=== PATIENT | female | born 1955 | race Hispanic/Latino ===

== ENCOUNTER 2021-12-14 14:11 | Outpatient (CLI) | payer MEDICARE | END 2021-12-14 14:12 | disposition home or self-care (01) | LOC: BICMAMMO 14:11 | PROVIDERS: ATTEND Internal Medicine Rheumatology | DX: M81.0 Age-related osteoporosis without current pathological fracture (principal); M05.79 Rheumatoid arthritis with rheumatoid factor of multiple sites without organ or systems involvement | CPT/HCPCS: 71046; 77080 ==

== ENCOUNTER 2022-03-10 08:53 | Outpatient (CLI) | payer MEDICARE | END 2022-03-10 08:54 | disposition home or self-care (01) | LOC: BICMRI 08:53 | PROVIDERS: ATTEND Anesthesiology | DX: M47.26 Other spondylosis with radiculopathy, lumbar region (principal); M47.22 Other spondylosis with radiculopathy, cervical region; M47.817 Spondylosis without myelopathy or radiculopathy, lumbosacral region; M48.07 Spinal stenosis, lumbosacral region | CPT/HCPCS: 72141; 72148 ==

== ENCOUNTER 2022-05-11 10:35 | Emergency (ER) | payer MEDICARE ==
[2022-05-11] MEDS ORDERED: Ketorolac Tromethamine 30 MG/ML VIAL ONE (12:26)
== END 2022-05-11 13:39 | disposition home or self-care (01) ==
LOC: ERS 10:35
DX: M25.532 Pain in left wrist (principal); M25.571 Pain in right ankle and joints of right foot; I10 Essential (primary) hypertension; M06.9 Rheumatoid arthritis, unspecified; M79.7 Fibromyalgia; Z79.82 Long term (current) use of aspirin; Z79.899 Other long term (current) drug therapy
CPT/HCPCS: 93005; J1885

== ENCOUNTER 2022-06-10 21:47 | Observation (INO) | payer MEDICARE ==
[2022-06-10 22:27] LABS: #Basophils 0.1 thou/uL (0.0-0.2); #Lymphocytes 3.2 thou/uL (1.20-3.40); #Monocytes 0.6 thou/uL (0.11-0.59); #Neutrophils 4.3 thou/uL (1.40-6.50); %Basophils 0.8 % (0.0-1.0); %Eosinophils 0.1 % (0.0-10.0); %Monocytes 7.4 % (0.0-10.0); %Neutrophils 52.6 % (42.0-75.0); Hemoglobin 12.5 g/dL (12.0-16.0); Mean Corpuscular HGB CONC 33.4 g/dL (32.0-36.0); Mean Corpuscular Hemoglobin 31.1 pg (27.0-31.0); Mean Corpuscular Volume 93.1 fL (78.0-98.0); Mean Platelet Volume 7.1 fL (7.4-10.4); Platelet Count 268 thou/uL (130-400); RBC Distribution Width 11.9 % (11.5-14.5); Red Blood Cell (RBC) Count 4.02 mill/uL (4.20-5.40); White Blood Cell (WBC) Count 8.1 thou/uL (4.8-10.8)
[2022-06-10] MEDS ORDERED: Aspirin Chewable 81 MG TAB ONE ×2 (22:44→22:57)
[2022-06-10 22:50] LABS: ALT (SGPT) 8 U/L (8-55); AST (SGOT) 14 U/L (5-34); Albumin 4.1 g/dL (3.4-4.8); Alkaline Phosphatase 87 U/L (40-110); Anion Gap 14 mmol/L (10-20); BUN (Urea Nitrogen) 10 mg/dL (9.8-20.1); Bilirubin, Total Less than 0.2 mg/dL (0.2-1.2); Calc. Creatinine Clearance 0 mL/min (70-130); Calcium 8.8 mg/dL (7.8-10.44); Carbon Dioxide 25 mmol/L (23-31); Chloride 99 mmol/L (98-107); Estimated GFR 95; Globulin 3.1 g/dL (2.4-3.5); Glucose 91 mg/dL (80-115); Magnesium 2.1 mg/dL (1.6-2.6); Potassium 3.7 mmol/L (3.5-5.1); Protein, Total 7.2 g/dL (5.8-8.1); Sodium 134 mmol/L (136-145)
[2022-06-10 23:12] LABS: CKMB 0.5 ng/mL (0-6.6)
[2022-06-10] MEDS ORDERED: Nitroglycerin 0.4 MG TAB 1 EACH ONE (23:25)
[2022-06-11 01:04] VITALS: BMI 30.9
[2022-06-11] MEDS ORDERED: Acetaminophen 325 MG TAB PO PRN (02:16)
[2022-06-11] MEDS ORDERED: Acetaminophen 650 MG Suppository PR PRN (02:16)
[2022-06-11] MEDS ORDERED: Ondansetron PF 4 MG/2 ML Vial IVP PRN (02:16)
[2022-06-11 02:26] LABS: Troponin I Less than 0.010 ng/mL (< 0.028)
[2022-06-11] MEDS: Morphine 4 MG/ML VIAL SLOW IVP PRN ×2 (02:31→16:35)
[2022-06-11] MEDS: Ondansetron ODT 4 MG TAB PO PRN ×2 (02:32→18:42)
[2022-06-11] MEDS ORDERED: hydrALAZINE 20 MG/ML VIAL SLOW IVP PRN (02:56)
[2022-06-11 05:21] LABS: #Lymphocytes 2.6 thou/uL (1.20-3.40); #Monocytes 0.5 thou/uL (0.11-0.59); %Basophils 0.2 % (0.0-1.0); %Eosinophils 0.1 % (0.0-10.0); %Monocytes 6.4 % (0.0-10.0); %Neutrophils 56.2 % (42.0-75.0); Hemoglobin 12.6 g/dL (12.0-16.0); Mean Corpuscular HGB CONC 34.2 g/dL (32.0-36.0); Mean Corpuscular Hemoglobin 32.1 pg (27.0-31.0); Mean Corpuscular Volume 93.6 fL (78.0-98.0); Mean Platelet Volume 7.2 fL (7.4-10.4); Platelet Count 257 thou/uL (130-400); RBC Distribution Width 12.1 % (11.5-14.5); Red Blood Cell (RBC) Count 3.93 mill/uL (4.20-5.40); White Blood Cell (WBC) Count 7.1 thou/uL (4.8-10.8)
[2022-06-11 05:40] LABS: Anion Gap 12 mmol/L (10-20); BUN (Urea Nitrogen) 7 mg/dL (9.8-20.1); Calc. Creatinine Clearance 101 mL/min (70-130); Calcium 8.8 mg/dL (7.8-10.44); Carbon Dioxide 27 mmol/L (23-31); Chloride 101 mmol/L (98-107); Estimated GFR 96; Glucose 100 mg/dL (80-115); Sodium 136 mmol/L (136-145)
[2022-06-11 05:41] LABS: Troponin I Less than 0.010 ng/mL (< 0.028)
[2022-06-11] MEDS ORDERED: Nitroglycerin 0.4 MG TAB (25 Tab Bottle) SL PRN (06:52)
[2022-06-11] MEDS ORDERED: ADENOSINE 60 MG/20 ML VIAL ONE (08:32)
[2022-06-11] MEDS: Aspirin Chewable 81 MG TAB PO SCH (09:18)
[2022-06-11] MEDS ORDERED: Iopamidol-370 76% 500 ML 1 ML ONE (09:57)
[2022-06-11] MEDS ORDERED: Morphine 2 MG/ML VIAL SLOW IVP PRN (17:03)
[2022-06-11] MEDS ORDERED: Folic Acid 1 MG TAB PO SCH (17:15)
[2022-06-11] MEDS ORDERED: Sodium Chloride 0.9% 1,000 ML IV SCH (17:15)
[2022-06-11] MEDS ORDERED: HYDROcodone/Acetaminophen 7.5/325 mg Tablet PO PRN (18:03)
[2022-06-11] MEDS: carBAMazepine 200 MG TAB PO SCH ×2 (18:51→20:20)
[2022-06-11] MEDS: Fluticasone Propionate Nasal Spray 16 gm Bottle NASAL SCH (20:21)
[2022-06-11] MEDS: Polyvinyl Alcohol 1.4%/Povidone 0.6% Opth Drops EA EYE SCH (20:24)
[2022-06-11] MEDS: Timolol 0.25% Ophth Soln 5 ml Bottle EA EYE SCH (20:25)
[2022-06-11] MEDS ORDERED: Latanoprost 0.005% Ophth Soln 2.5 ml Bottle EA EYE SCH (21:00)
[2022-06-12] MEDS: carBAMazepine 200 MG TAB PO SCH (08:06)
[2022-06-12] MEDS: Aspirin Chewable 81 MG TAB PO SCH (08:06)
[2022-06-12] MEDS: Fluticasone Propionate Nasal Spray 16 gm Bottle NASAL SCH (08:06)
[2022-06-12] MEDS: Timolol 0.25% Ophth Soln 5 ml Bottle EA EYE SCH (08:07)
[2022-06-12] MEDS: Polyvinyl Alcohol 1.4%/Povidone 0.6% Opth Drops EA EYE SCH (08:10)
[2022-06-12] MEDS ORDERED: Aspirin Chewable 81 MG TAB PO SCH (09:00)
[2022-06-12] MEDS ORDERED: Leflunomide 10 mg Tablet PO SCH (09:00)
[2022-06-12] MEDS ORDERED: [UNRECOGNIZED DRUG - MIXTURE] PO SCH (09:00)
[2022-06-12] MEDS ORDERED: Citalopram 20 MG TAB PO SCH (09:00)
[2022-06-12] MEDS ORDERED: Folic Acid 1 MG TAB PO SCH (09:00)
[2022-06-12 09:48] VITALS: BP 129/62; TEMP 97.6
[2022-06-18] MEDS ORDERED: Non-Formulary Item 1 EACH (Cholecalciferol (Vitamin D3) [Vitamin D] 1000 UNIT Capsule) PO SCH (09:00)
== END 2022-06-12 11:35 | disposition home or self-care (01) ==
LOC: ERS 21:47 → 2SW 06-11 00:01
PROVIDERS: ADMIT Internal Medicine; ATTEND Internal Medicine
DX: R07.81 Pleurodynia (principal); E87.1 Hypo-osmolality and hyponatremia; I95.9 Hypotension, unspecified; H40.9 Unspecified glaucoma; M79.7 Fibromyalgia; M06.9 Rheumatoid arthritis, unspecified; G89.4 Chronic pain syndrome; K21.9 Gastro-esophageal reflux disease without esophagitis; I10 Essential (primary) hypertension; G50.0 Trigeminal neuralgia; Z79.82 Long term (current) use of aspirin; Z79.899 Other long term (current) drug therapy; Z20.822 Contact with and (suspected) exposure to COVID-19
CPT/HCPCS: 71045; 71275; 78452; 80048; 80053; 82553; 83735; 83880; 84484 ×3; 85025 ×2; 93005; 93017; 96374; 96375; 96376; 99285; A9500; G0378 ×3; U0003; U0005; 36415; J0153; J0360; J2270; J7050; Q0162; Q9967

== ENCOUNTER 2022-06-29 10:40 | Emergency (ER) | payer MEDICARE ==
[2022-06-29 11:23] LABS: #Basophils 0.1 thou/uL (0.0-0.2); #Neutrophils 9.6 thou/uL (1.40-6.50); %Basophils 0.4 % (0.0-1.0); %Lymphocytes 16.2 % (21.0-51.0); %Monocytes 7.7 % (0.0-10.0); %Neutrophils 75.6 % (42.0-75.0); Hemoglobin 13.3 g/dL (12.0-16.0); Mean Corpuscular HGB CONC 33.3 g/dL (32.0-36.0); Mean Corpuscular Hemoglobin 31.7 pg (27.0-31.0); Mean Corpuscular Volume 95.1 fL (78.0-98.0); Mean Platelet Volume 7.7 fL (7.4-10.4); Platelet Count 211 thou/uL (130-400); White Blood Cell (WBC) Count 12.6 thou/uL (4.8-10.8)
[2022-06-29 11:46] LABS: ALT (SGPT) 10 U/L (8-55); AST (SGOT) 12 U/L (5-34); Alkaline Phosphatase 81 U/L (40-110); Anion Gap 11 mmol/L (10-20); BUN (Urea Nitrogen) 8 mg/dL (9.8-20.1); Bilirubin, Total 0.7 mg/dL (0.2-1.2); Calc. Creatinine Clearance 0 mL/min (70-130); Carbon Dioxide 28 mmol/L (23-31); Chloride 99 mmol/L (98-107); Estimated GFR 95; Globulin 3.2 g/dL (2.4-3.5); Glucose 119 mg/dL (80-115); Lipase 10 U/L (8-78); Protein, Total 7.2 g/dL (5.8-8.1); Sodium 134 mmol/L (136-145)
[2022-06-29] MEDS ORDERED: Dicyclomine 20 MG/2 ML VIAL ONE (12:53)
[2022-06-29] MEDS ORDERED: Ondansetron PF 4 MG/2 ML Vial ONE (12:53)
[2022-06-29] MEDS ORDERED: Morphine 4 MG/ML VIAL ONE (12:53)
[2022-06-29] MEDS ORDERED: Iopamidol-370 76% 500 ML 1 ML ONE (13:39)
[2022-06-29 13:56] LABS: Bilirubin Negative (Negative); Blood, Urine Negative (Negative); Clarity Clear (Clear); Glucose, Urine (Dipstick) Normal (Negative); Ketone, Urine Negative (Negative); Leukocyte Negative Leu/uL (Negative); Nitrite Negative (Negative); Protein, Urine (Dipstick) Negative (Neg-Trace); Specific Gravity, Urine 1.005 (1.002-1.036); Urobilinogen Normal mg/dL (Less than 2)
== END 2022-06-29 14:36 | disposition home or self-care (01) ==
LOC: ERS 10:40
DX: K57.92 Diverticulitis of intestine, part unspecified, without perforation or abscess without bleeding (principal); I10 Essential (primary) hypertension; M06.9 Rheumatoid arthritis, unspecified; M79.7 Fibromyalgia; Z79.82 Long term (current) use of aspirin; Z79.4 Long term (current) use of insulin; Z79.899 Other long term (current) drug therapy
CPT/HCPCS: 36415; 71045; 71275; 75635; 80053; 81003; 83605; 83690; 84484; 85025; 93005; 94760; 96372; 96374; 96375; J2270; J2405; Q9967

== ENCOUNTER 2022-08-22 17:30 | Outpatient (CLI) | payer MEDICARE | END 2022-08-22 17:31 | disposition home or self-care (01) | LOC: SLEEPLAB 17:30 | PROVIDERS: ATTEND Internal Medicine Pulmonary Disease | DX: G47.33 Obstructive sleep apnea (adult) (pediatric) (principal); R06.83 Snoring; G47.00 Insomnia, unspecified; E66.9 Obesity, unspecified; Z68.31 Body mass index [BMI] 31.0-31.9, adult | CPT/HCPCS: 95800 ==

== ENCOUNTER 2022-11-30 07:35 | Outpatient (CLI) | payer MEDICARE ==
[2022-11-30] MEDS ORDERED: Iopamidol 370 76% 100 ML VIAL ONE (14:59)
== END 2022-11-30 07:36 | disposition home or self-care (01) ==
LOC: CT 07:35
PROVIDERS: ATTEND Internal Medicine Gastroenterology
DX: K57.92 Diverticulitis of intestine, part unspecified, without perforation or abscess without bleeding (principal)
CPT/HCPCS: 74177; Q9967

== ENCOUNTER 2022-12-02 11:31 | Outpatient (CLI) | payer MEDICARE | END 2022-12-02 11:32 | disposition home or self-care (01) | LOC: RAD 11:31 | PROVIDERS: ATTEND Physician Assistant Medical | DX: R07.9 Chest pain, unspecified (principal) | CPT/HCPCS: 71046 ==

== ENCOUNTER 2022-12-05 10:45 | Outpatient (CLI) | payer MEDICARE | END 2022-12-05 10:46 | disposition home or self-care (01) | LOC: BICMAMMO 10:45 | PROVIDERS: ATTEND Student in an Organized Health Care Education/Training Program | DX: Z12.31 Encounter for screening mammogram for malignant neoplasm of breast (principal) | CPT/HCPCS: 77063; 77067 ==

== ENCOUNTER 2022-12-27 23:28 | Emergency (ER) | payer MEDICARE ==
[2022-12-27] MEDS ORDERED: Ondansetron ODT 4 MG TAB ONE (23:38)
[2022-12-28] MEDS ORDERED: diphenhydrAMINE 50 MG/ML VIAL ONE (00:14)
[2022-12-28] MEDS ORDERED: Metoclopramide HCl 10 MG/2 ML VIAL ONE (00:14)
[2022-12-28 00:41] LABS: #Basophils 0.1 thou/uL (0.0-0.2); #Lymphocytes 3.2 thou/uL (1.20-3.40); #Monocytes 0.7 thou/uL (0.11-0.59); #Neutrophils 4.7 thou/uL (1.40-6.50); %Basophils 0.9 % (0.0-1.0); %Eosinophils 0.1 % (0.0-10.0); %Lymphocytes 36.8 % (21.0-51.0); %Monocytes 7.9 % (0.0-10.0); %Neutrophils 54.3 % (42.0-75.0); Hemoglobin 13.5 g/dL (12.0-16.0); Mean Corpuscular HGB CONC 35.7 g/dL (32.0-36.0); Mean Corpuscular Hemoglobin 32.9 pg (27.0-31.0); Mean Corpuscular Volume 92.3 fl (78.0-98.0); Mean Platelet Volume 7.1 fL (7.4-10.4); Platelet Count 233 10x3/uL (130-400); RBC Distribution Width 11.7 % (11.5-14.5); Red Blood Cell (RBC) Count 4.09 mill/uL (4.20-5.40); White Blood Cell (WBC) Count 8.7 10x3/uL (4.8-10.8)
[2022-12-28 01:02] LABS: ALT (SGPT) 10 U/L (8-55); AST (SGOT) 14 U/L (5-34); Albumin 4.1 g/dL (3.4-4.8); Alkaline Phosphatase 72 U/L (40-110); Anion Gap 14 mmol/L (10-20); BUN (Urea Nitrogen) 7 mg/dL (9.8-20.1); Bilirubin, Total 0.4 mg/dL (0.2-1.2); Calc. Creatinine Clearance 0 mL/min (70-130); Calcium 9.3 mg/dL (7.8-10.44); Carbon Dioxide 24 mmol/L (23-31); Chloride 98 mmol/L (98-107); Estimated GFR 90; Globulin 3.2 g/dL (2.4-3.5); Glucose 107 mg/dL (80-115); Magnesium 2.1 mg/dL (1.6-2.6); Potassium 3.9 mmol/L (3.5-5.1); Protein, Total 7.3 g/dL (5.8-8.1); Sodium 132 mmol/L (136-145)
[2022-12-28] MEDS ORDERED: Morphine 4 MG/ML VIAL ONE (01:05)
[2022-12-28] MEDS ORDERED: Iopamidol-370 76% 500 ML 1 ML ONE (17:09)
== END 2022-12-28 03:38 | disposition home or self-care (01) ==
LOC: ERS 23:28
DX: E51.9 Thiamine deficiency, unspecified (principal); E04.1 Nontoxic single thyroid nodule; I10 Essential (primary) hypertension
CPT/HCPCS: 70496; 70498; 80053; 83735; 85025; 93005; 96365; 96375; J1200; J2270; J2765; Q0162; Q9967

== ENCOUNTER 2023-02-06 10:14 | Outpatient (CLI) | payer MEDICARE | END 2023-02-06 10:15 | disposition home or self-care (01) | LOC: ULT 10:14 | PROVIDERS: ATTEND Nurse Practitioner Family | DX: E04.1 Nontoxic single thyroid nodule (principal); E04.2 Nontoxic multinodular goiter | CPT/HCPCS: 76536 ==

== ENCOUNTER 2023-05-18 10:22 | Outpatient (CLI) | payer MEDICARE | END 2023-05-18 10:23 | disposition home or self-care (01) | LOC: RAD 10:22 | PROVIDERS: ATTEND Student in an Organized Health Care Education/Training Program | DX: M25.511 Pain in right shoulder (principal) ==

== ENCOUNTER 2023-06-04 21:45 | Emergency (ER) | payer MEDICARE ==
[2023-06-04] MEDS ORDERED: Gabapentin 100 MG CAP PO SCH (23:30)
[2023-06-04 23:42] LABS: #Monocytes 0.9 thou/uL (0.11-0.59); #Neutrophils 5.2 thou/uL (1.40-6.50); %Basophils 0.4 % (0.0-1.0); %Lymphocytes 37.1 % (21.0-51.0); %Monocytes 8.8 % (0.0-10.0); %Neutrophils 53.3 % (42.0-75.0); Hematocrit 36.6 % (36.0-47.0); Hemoglobin 12.4 g/dL (12.0-16.0); Mean Corpuscular HGB CONC 33.9 g/dL (32.0-36.0); Mean Corpuscular Hemoglobin 30.9 pg (27.0-31.0); Mean Corpuscular Volume 91.3 fl (78.0-98.0); Mean Platelet Volume 9.3 fL (7.4-10.4); Platelet Count 259 10x3/uL (130-400); RBC Distribution Width 13.1 % (11.5-14.5); Red Blood Cell (RBC) Count 4.01 mill/uL (4.20-5.40); White Blood Cell (WBC) Count 9.8 10x3/uL (4.8-10.8)
[2023-06-05 00:06] LABS: ALT (SGPT) 12 U/L (8-55); AST (SGOT) 17 U/L (5-34); Albumin 4.2 g/dL (3.4-4.8); Alkaline Phosphatase 99 U/L (40-110); Anion Gap 13 mmol/L (10-20); BUN (Urea Nitrogen) 12 mg/dL (9.8-20.1); Bilirubin, Total 0.2 mg/dL (0.2-1.2); Calc. Creatinine Clearance 0 mL/min (70-130); Carbon Dioxide 25 mmol/L (23-31); Chloride 101 mmol/L (98-107); Estimated GFR 83; Globulin 3.2 g/dL (2.4-3.5); Glucose 92 mg/dL (80-115); Potassium 3.9 mmol/L (3.5-5.1); Protein, Total 7.4 g/dL (5.8-8.1); Sodium 135 mmol/L (136-145)
[2023-06-05 00:10] LABS: Troponin I Less than 0.010 ng/mL (< 0.028)
== END 2023-06-05 00:53 | disposition home or self-care (01) ==
LOC: ERS 21:45
DX: R20.2 Paresthesia of skin (principal); I10 Essential (primary) hypertension; Z79.82 Long term (current) use of aspirin; Z79.899 Other long term (current) drug therapy
CPT/HCPCS: 36415; 80053; 84484; 85025; 93005

== ENCOUNTER 2023-06-06 11:48 | Outpatient (CLI) | payer MEDICARE | END 2023-06-06 11:49 | disposition home or self-care (01) | LOC: RAD 11:48 | PROVIDERS: ATTEND Internal Medicine Rheumatology | DX: M54.2 Cervicalgia (principal); M47.812 Spondylosis without myelopathy or radiculopathy, cervical region | CPT/HCPCS: 72052 ==

== ENCOUNTER 2023-06-19 23:13 | Observation (INO) | payer MEDICARE ==
[2023-06-20] MEDS ORDERED: Ketorolac Tromethamine 30 MG/ML VIAL ONE ×2 (01:39→11:30)
[2023-06-20 01:55] LABS: #Monocytes 0.6 thou/uL (0.11-0.59); #Neutrophils 4.8 thou/uL (1.40-6.50); %Basophils 0.2 % (0.0-1.0); %Lymphocytes 33.3 % (21.0-51.0); %Monocytes 7.7 % (0.0-10.0); %Neutrophils 58.4 % (42.0-75.0); Hematocrit 37.7 % (36.0-47.0); Hemoglobin 13.2 g/dL (12.0-16.0); Mean Corpuscular Hemoglobin 30.9 pg (27.0-31.0); Mean Platelet Volume 9.2 fL (7.4-10.4); Platelet Count 231 10x3/uL (130-400); RBC Distribution Width 12.9 % (11.5-14.5); Red Blood Cell (RBC) Count 4.27 mill/uL (4.20-5.40); White Blood Cell (WBC) Count 8.2 10x3/uL (4.8-10.8)
[2023-06-20 02:03] LABS: Mean Corpuscular Volume 88.3 fl (78.0-98.0)
[2023-06-20 02:19] LABS: ALT (SGPT) 10 U/L (8-55); AST (SGOT) 15 U/L (5-34); Albumin 4.1 g/dL (3.4-4.8); Alkaline Phosphatase 100 U/L (40-110); Anion Gap 14 mmol/L (10-20); BUN (Urea Nitrogen) 9 mg/dL (9.8-20.1); Bilirubin, Total 0.3 mg/dL (0.2-1.2); Calc. Creatinine Clearance 0 mL/min (70-130); Calcium 9.4 mg/dL (7.8-10.44); Carbon Dioxide 23 mmol/L (23-31); Chloride 95 mmol/L (98-107); Estimated GFR 95; Globulin 3.5 g/dL (2.4-3.5); Glucose 108 mg/dL (80-115); Lipase 23 U/L (8-78); Protein, Total 7.6 g/dL (5.8-8.1); Sodium 128 mmol/L (136-145)
[2023-06-20 02:27] LABS: Troponin I Less than 0.010 ng/mL (< 0.028)
[2023-06-20] MEDS ORDERED: Ondansetron PF 4 MG/2 ML Vial IVP PRN (05:30)
[2023-06-20] MEDS ORDERED: Acetaminophen 650 MG Suppository PR PRN (05:30)
[2023-06-20] MEDS ORDERED: Ondansetron ODT 4 MG TAB PO PRN (05:30)
[2023-06-20] MEDS ORDERED: Acetaminophen 325 MG TAB PO PRN (05:30)
[2023-06-20 05:35] VITALS: BMI 30.1
[2023-06-20 06:02] LABS: Bacteria/HPF None Seen HPF (None Seen); Bilirubin Negative (Negative); Blood, Urine Negative (Negative); CAUTI Indications for Culture Immunosuppressed; Clarity Clear (Clear); Glucose, Urine (Dipstick) Normal (Negative); Ketone, Urine Negative (Negative); Leukocyte Negative Leu/uL (Negative); Nitrite Negative (Negative); Protein, Urine (Dipstick) Negative (Neg-Trace); RBC/HPF None Seen HPF (0-3); Specific Gravity, Urine 1.008 (1.002-1.036); Squamous Epithelial 0-3 HPF (0-3); Urobilinogen Normal mg/dL (Less than 2); WBC/HPF 0-3 HPF (0-3)
[2023-06-20 06:10] LABS: Urine Culture Reflex Yes Yes
[2023-06-20 06:29] LABS: Anion Gap 13 mmol/L (10-20); BUN (Urea Nitrogen) 8 mg/dL (9.8-20.1); Calc. Creatinine Clearance 97 mL/min (70-130); Calcium 8.8 mg/dL (7.8-10.44); Carbon Dioxide 24 mmol/L (23-31); Chloride 96 mmol/L (98-107); Estimated GFR 94; Glucose 124 mg/dL (80-115); Potassium 3.9 mmol/L (3.5-5.1); Sodium 129 mmol/L (136-145)
[2023-06-20] MEDS ORDERED: Ketorolac Tromethamine 30 MG/ML VIAL IVP SCH (11:00)
[2023-06-20 11:26] LABS: Anion Gap 10 mmol/L (10-20); BUN (Urea Nitrogen) 6 mg/dL (9.8-20.1); Calc. Creatinine Clearance 92 mL/min (70-130); Carbon Dioxide 25 mmol/L (23-31); Chloride 97 mmol/L (98-107); Estimated GFR 93; Glucose 106 mg/dL (80-115); Potassium 4.2 mmol/L (3.5-5.1); Sodium 128 mmol/L (136-145)
[2023-06-20] MEDS: Fluticasone Propionate Nasal Spray 16 gm Bottle NASAL SCH (20:36)
[2023-06-20] MEDS: Timolol 0.25% Ophth Soln 5 ml Bottle EA EYE SCH (20:36)
[2023-06-20] MEDS: carBAMazepine 200 MG TAB PO SCH (20:37)
[2023-06-20] MEDS: Artificial Tear Sol 15 ML BOT EA EYE SCH (20:37)
[2023-06-20] MEDS ORDERED: Gabapentin 300 MG CAP PO SCH (21:00)
[2023-06-20] MEDS ORDERED: Latanoprost 0.005% Ophth Soln 2.5 ml Bottle EA EYE SCH (21:00)
[2023-06-20] MEDS: HYDROcodone/Acetaminophen 7.5/325 mg Tablet PO SCH (22:31)
[2023-06-21] MEDS ORDERED: Gabapentin 300 MG CAP PO SCH ×2 (08:15→21:00)
[2023-06-21] MEDS ORDERED: Lisinopril 20 MG TAB PO SCH (09:00)
[2023-06-21] MEDS ORDERED: Ascorbic Acid 500 mg Chewable Tablet PO SCH (09:00)
[2023-06-21] MEDS ORDERED: Dexamethasone 10 MG/ML VIAL SLOW IVP SCH (09:00)
[2023-06-21] MEDS ORDERED: Folic Acid 1 MG TAB PO SCH (09:00)
[2023-06-21] MEDS ORDERED: Citalopram 20 MG TAB PO SCH (09:00)
[2023-06-21] MEDS ORDERED: Aspirin Chewable 81 MG TAB PO SCH (09:00)
[2023-06-21] MEDS ORDERED: Sodium Chloride 1 GM TAB PO SCH (09:00)
[2023-06-21] MEDS ORDERED: Leflunomide 10 mg Tablet PO SCH (09:00)
[2023-06-21] MEDS ORDERED: [UNRECOGNIZED DRUG - OTHER] PO SCH (09:00)
[2023-06-21] MEDS: HYDROcodone/Acetaminophen 7.5/325 mg Tablet PO SCH (09:01)
[2023-06-21] MEDS: carBAMazepine 200 MG TAB PO SCH ×3 (09:04→16:26)
[2023-06-21] MEDS: Fluticasone Propionate Nasal Spray 16 gm Bottle NASAL SCH (09:16)
[2023-06-21] MEDS: Timolol 0.25% Ophth Soln 5 ml Bottle EA EYE SCH (09:18)
[2023-06-21] MEDS ORDERED: Iopamidol 370 76% 100 ML VIAL ONE (09:21)
[2023-06-21] MEDS: Artificial Tear Sol 15 ML BOT EA EYE SCH ×2 (09:25→15:16)
[2023-06-21 09:28] LABS: Anion Gap 12 mmol/L (10-20); BUN (Urea Nitrogen) 8 mg/dL (9.8-20.1); Calc. Creatinine Clearance 94 mL/min (70-130); Carbon Dioxide 23 mmol/L (23-31); Chloride 100 mmol/L (98-107); Estimated GFR 94; Glucose 107 mg/dL (80-115); Potassium 4.2 mmol/L (3.5-5.1); Sodium 131 mmol/L (136-145)
[2023-06-21 16:10] VITALS: BP 132/63; TEMP 97.9
[2023-06-27] MEDS ORDERED: Ergocalciferol 1.25 MG(50,000 UNITS) CAP PO SCH (09:00)
== END 2023-06-21 18:45 | disposition home or self-care (01) ==
LOC: ERS 23:13 → ERHOLD 06-20 04:52 → 2SW 06-20 12:34
PROVIDERS: ADMIT Student in an Organized Health Care Education/Training Program; ATTEND Family Medicine
DX: R20.2 Paresthesia of skin (principal); M06.9 Rheumatoid arthritis, unspecified; E87.1 Hypo-osmolality and hyponatremia; I10 Essential (primary) hypertension; M79.7 Fibromyalgia; R10.9 Unspecified abdominal pain; Z79.82 Long term (current) use of aspirin; Z79.899 Other long term (current) drug therapy; Z90.89 Acquired absence of other organs; Z90.710 Acquired absence of both cervix and uterus
CPT/HCPCS: 71045; 72141; 74177; 80048 ×2; 81001; 82533; 82570; 83690; 83735; 83880; 83930; 83935; 84484; 84540; 87086; 93005; 96374; 96375; 96376; 97116; 97530; 99284; G0378 ×3; 36415; 36416; 80053; 84443; 85025; J1100; J1885; Q9967

== ENCOUNTER 2023-07-13 08:00 | Outpatient (CLI) | payer MEDICARE | END 2023-07-13 08:01 | disposition home or self-care (01) | LOC: BICMRI 08:00 | PROVIDERS: ATTEND Psychiatry & Neurology Neurology | DX: G50.9 Disorder of trigeminal nerve, unspecified (principal) | CPT/HCPCS: 70553 ==

== ENCOUNTER 2023-12-08 11:45 | Outpatient (CLI) | payer MEDICARE | END 2023-12-08 11:46 | disposition home or self-care (01) | LOC: BICRAD 11:45 | PROVIDERS: ATTEND Nurse Practitioner Family | DX: M54.50 Low back pain, unspecified (principal); M54.6 Pain in thoracic spine; M54.2 Cervicalgia; M47.816 Spondylosis without myelopathy or radiculopathy, lumbar region; M47.814 Spondylosis without myelopathy or radiculopathy, thoracic region; M47.812 Spondylosis without myelopathy or radiculopathy, cervical region | CPT/HCPCS: 72040; 72072; 72100; 72220 ==

== ENCOUNTER 2023-12-14 09:28 | Outpatient (CLI) | payer MEDICARE | END 2023-12-14 09:29 | disposition home or self-care (01) | LOC: BICMAMMO 09:28 | PROVIDERS: ATTEND Internal Medicine Rheumatology | DX: Z12.31 Encounter for screening mammogram for malignant neoplasm of breast (principal); M81.0 Age-related osteoporosis without current pathological fracture; M05.79 Rheumatoid arthritis with rheumatoid factor of multiple sites without organ or systems involvement; M85.89 Other specified disorders of bone density and structure, multiple sites | CPT/HCPCS: 71046; 77063; 77067; 77080 ==

== ENCOUNTER 2023-12-15 07:32 | Outpatient (CLI) | payer MEDICARE | END 2023-12-15 07:33 | disposition home or self-care (01) | LOC: BICCT 07:32 | PROVIDERS: ATTEND Physician Assistant Medical | DX: K21.9 Gastro-esophageal reflux disease without esophagitis (principal); K92.89 Other specified diseases of the digestive system; R10.84 Generalized abdominal pain; K57.30 Diverticulosis of large intestine without perforation or abscess without bleeding; V89.2XXA Person injured in unspecified motor-vehicle accident, traffic, initial encounter | CPT/HCPCS: 74177 ==

== ENCOUNTER 2024-04-24 16:33 | Outpatient (CLI) | payer MEDICARE | END 2024-04-24 16:34 | disposition home or self-care (01) | LOC: BICRAD 16:33 | PROVIDERS: ATTEND Nurse Practitioner Family | DX: M25.521 Pain in right elbow (principal); M05.79 Rheumatoid arthritis with rheumatoid factor of multiple sites without organ or systems involvement ==

== ENCOUNTER 2024-05-14 16:15 | Outpatient (CLI) | payer MEDICARE | END 2024-05-14 16:16 | disposition home or self-care (01) | LOC: SCSRAD 16:15 | PROVIDERS: ATTEND Nurse Practitioner Family | DX: R07.89 Other chest pain (principal) | CPT/HCPCS: 71046 ==

== ENCOUNTER 2024-10-03 14:51 | Outpatient (CLI) | payer MEDICARE | END 2024-10-03 14:52 | disposition home or self-care (01) | LOC: BICRAD 14:51 | PROVIDERS: ATTEND Internal Medicine Rheumatology | DX: M81.0 Age-related osteoporosis without current pathological fracture (principal); M05.79 Rheumatoid arthritis with rheumatoid factor of multiple sites without organ or systems involvement; M77.31 Calcaneal spur, right foot; M19.071 Primary osteoarthritis, right ankle and foot ==

== ENCOUNTER 2024-10-21 14:00 | Outpatient (CLI) | payer MEDICARE | END 2024-10-21 14:01 | disposition home or self-care (01) | LOC: CT 14:00 | DX: R10.9 Unspecified abdominal pain (principal); K57.32 Diverticulitis of large intestine without perforation or abscess without bleeding | CPT/HCPCS: 74178 ==

== ENCOUNTER 2024-11-07 10:29 | Outpatient (CLI) | payer OTHER | END 2024-11-07 10:30 | disposition home or self-care (01) | LOC: DTY/OP 10:29 | PROVIDERS: ATTEND Internal Medicine Gastroenterology | DX: K59.00 Constipation, unspecified (principal); K21.9 Gastro-esophageal reflux disease without esophagitis; K31.84 Gastroparesis; K92.1 Melena; R10.32 Left lower quadrant pain | CPT/HCPCS: 97802 ==

== ENCOUNTER 2024-11-20 10:23 | Outpatient (CLI) | payer MEDICARE | END 2024-11-20 10:24 | disposition home or self-care (01) | LOC: BICRAD 10:23 | PROVIDERS: ATTEND Internal Medicine Gastroenterology | DX: R14.0 Abdominal distension (gaseous) (principal); R19.5 Other fecal abnormalities; K59.00 Constipation, unspecified; K57.92 Diverticulitis of intestine, part unspecified, without perforation or abscess without bleeding; K58.9 Irritable bowel syndrome, unspecified; K92.89 Other specified diseases of the digestive system; M79.7 Fibromyalgia | CPT/HCPCS: 36415; 74019; 82947; 85025 ==

== ENCOUNTER 2025-06-30 16:04 | Outpatient (CLI) | payer MEDICARE | END 2025-06-30 16:05 | disposition home or self-care (01) | LOC: BICRAD 16:04 | PROVIDERS: ATTEND Internal Medicine Rheumatology | DX: M05.79 Rheumatoid arthritis with rheumatoid factor of multiple sites without organ or systems involvement (principal) | CPT/HCPCS: 71046 ==

== ENCOUNTER 2025-09-25 13:24 | Outpatient (CLI) | payer MEDICARE | END 2025-09-25 13:25 | disposition home or self-care (01) | LOC: BICRAD 13:24 | PROVIDERS: ATTEND Internal Medicine Rheumatology | DX: M17.0 Bilateral primary osteoarthritis of knee (principal); M05.79 Rheumatoid arthritis with rheumatoid factor of multiple sites without organ or systems involvement | CPT/HCPCS: 71046; 73565 ==